=== PATIENT | female | born 1995 | race Caucasian/White ===

== ENCOUNTER 2017-09-14 17:35 | Emergency (ER) | payer OTHER ==
[~2017-09-14] VITALS: Ht 162.6 cm; Wt 67.2 kg
[2017-09-14 20:47] LABS: HEMATOCRIT 36.2 % (36.0-46.0); HEMOGLOBIN 12.6 G/DL (11.9-15.5); MCHC 34.8 G/DL (30.0-36.0); MCV 86.2 FL (83-99); PLATELET COUNT 260 K/uL (156-360); RBC DIS.WIDTH-CV 11.9 % (11.8-14.6); RBC DIS.WIDTH-SD 37.2 % (39-53); WHITE BLOOD COUNT 8.3 K/uL (4.1-10.2)
[2017-09-14 21:02] LABS: CHLORIDE 107 mEq/L (99-109); POTASSIUM 3.7 mEq/L (3.7-5.4); SODIUM 138 mEq/L (136-147)
[2017-09-14 21:04] LABS: GLUCOSE 90 mg/dL (70-99)
[2017-09-14 21:08] LABS: CREATININE 0.6 mg/dL (0.6-1.3); GFR ESTIMATE (CALCULATED) > 59 mL/min/
[2017-09-14 21:09] LABS: UREA NITROGEN (BUN) 6 mg/dL (9-23)
[2017-09-14 21:22] LABS: APPEARANCE CLEAR ((CLEAR)); BILIRUBIN NEGATIVE; BLOOD NEGATIVE; COLOR AMBER ((YELLOW)); GLUCOSE (STRIP) NEGATIVE; KETONES NEGATIVE; LEUKOCYTES NEGATIVE; NITRITE POSITIVE; PROTEIN (STRIP) NEGATIVE; SPECIFIC GRAVITY 1.019 (1.000-1.030)
[2017-09-14 21:33] LABS: BACTERIA RARE /HPF; EPITHELIAL CELLS 1+ /HPF; MUCUS 1+ /LPF; RED BLOOD CELLS 0-5 /HPF (0-5); UCUL ADDED? NO; WHITE BLOOD CELLS 0-5 /HPF (0-5)
[2017-09-14] MEDS ORDERED: ULTRAM50 MG PO (22:04)
[2017-09-14] MEDS ORDERED: MOTRIN600 MG PO (22:04)
[2017-09-14] MEDS ORDERED: BACTRIM,SEPT1 TABLET PO (22:04)
[2017-09-14 22:15] VITALS: BP 131/73
== END 2017-09-14 22:20 | disposition home or self-care (01) ==
LOC: EXP 17:35 → EME 17:35 → EXP 22:20
DX: N39.0 Urinary tract infection, site not specified (principal); Z88.0 Allergy status to penicillin
CPT/HCPCS: 80048; 81003; 85027; 99281; 99284